=== PATIENT | male | born 1950 | race Caucasian/White ===

== ENCOUNTER 2023-12-11 03:46 | Emergency (ER) | payer MEDICARE ==
[2023-12-11 04:38] LABS: Hematocrit 43.8 % (38.8-50.0); Hemoglobin 14.6 g/dL (13.5-17.5); Mean Corpuscular HGB CONC 33.3 g/dL (32.0-36.0); Mean Corpuscular Hemoglobin 30.2 pg (27.0-33.0); Mean Corpuscular Volume 90.7 fl (81.2-95.1); Platelet Count 262 10x3/uL (150-450); RBC Distribution Width 14.3 % (11.5-14.5); Red Blood Cell (RBC) Count 4.83 10x6/uL (4.32-5.72); White Blood Cell (WBC) Count 15.6 10x3/uL (3.5-10.5)
[2023-12-11 04:39] LABS: ALT (SGPT) 75 U/L (8-55); AST (SGOT) 61 U/L (5-34); Albumin 3.9 g/dL (3.4-4.8); Alkaline Phosphatase 113 U/L (40-110); Anion Gap 12 mmol/L (10-20); BUN (Urea Nitrogen) 12 mg/dL (8.4-25.7); Bilirubin, Total 0.5 mg/dL (0.2-1.2); Calc. Creatinine Clearance 0 mL/min (70-130); Carbon Dioxide 24 mmol/L (23-31); Chloride 102 mmol/L (98-107); Estimated GFR 92; Globulin 6.5 g/dL (2.4-3.5); Glucose 173 mg/dL (83-110); Potassium 4.1 mmol/L (3.5-5.1); Protein, Total 10.4 g/dL (5.8-8.1); Sodium 134 mmol/L (136-145)
[2023-12-11 04:46] LABS: SARS-CoV-2 NAA Rapid Test Not Detected (NotDetected)
[2023-12-11] MEDS ORDERED: Labetalol HCl 100 MG/20 ML VIAL ONE (05:09)
[2023-12-11 05:10] LABS: Band 4 % (5-11); Eosinophils 3 % (0-10); Lymphocytes 10 % (21-51); Monocytes 2 % (0-10); Reactive Lymphocytes 35 % (0-10)
[2023-12-11 05:14] LABS: Neutrophil 46 % (42-75)
[2023-12-11 05:16] LABS: MDiff Complete? YES; Platelet Adequacy Comment Appears Adequate
[2023-12-11 05:17] LABS: Reflex for Review?? YES
[2023-12-11 06:04] LABS: Bilirubin Neg (Negative); Blood, Urine 10 (Negative); Clarity Clear (Clear); Glucose, Urine (Dipstick) Normal (Negative); Ketone, Urine Negative (Negative); Leukocyte Negative (Negative); Nitrite Negative (Negative); Protein, Urine (Dipstick) 100 mg/dl (Neg-Trace); Specific Gravity, Urine 1.015 (1.005-1.030); Urobilinogen Normal mg/dL (Less than 2)
[2023-12-11 06:15] LABS: Bacteria/HPF None Seen HPF (None Seen); CAUTI Indications for Culture Pelvic or flank pain; RBC/HPF 0-3 HPF (0-3); Squamous Epithelial 0-3 HPF (0-3); WBC/HPF None Seen HPF (0-3)
[2023-12-11 06:16] LABS: Urine Culture Reflex No No
== END 2023-12-11 07:02 | disposition home or self-care (01) ==
LOC: CSHERS 03:46
DX: R05.9 Cough, unspecified (principal)
CPT/HCPCS: 0240U; 71045; 80053; 81001; 83605; 83880; 84484; 85025; 93005; 36415; 85060; 96374